=== PATIENT | male | born 1950 | race Caucasian/White ===

== ENCOUNTER 2016-10-18 09:15 | Inpatient (IN) | payer OTHER ==
[2016-09-30 12:09] LABS: % IMMATURE GRANULYOCYTES 0.2 % (0.0-1.1); ABSOLUTE IMMATURE GRANULOCYTES 0.01 10^3/uL (0.00-0.10); ADD DIFF? NO; ADD MORPH? NO; ADD SCAN? NO; ATYPICAL LYMPHOCYTE FLAG 10 (0-99); FRAGMENT RBC FLAG 0 (0-99); HEMATOCRIT 44.4 % (40.0-51.0); HEMOGLOBIN 15.9 g/dL (13.7-17.5); LEFT SHIFT FLG 0 (0-99); LIPEMIA HEMOLYSIS FLAG 90 (0-99); MEAN CELL HEMOGLOBIN 34.9 pg (27.9-34.1); MEAN CELL HEMOGLOBIN CONCENTR. 35.8 g/dL (32.4-36.7); MEAN CELL VOLUME 97.4 fL (81.5-99.8); PLATELET CLUMPS FLAG 0 (0-99); PLATELET COUNT 222 10^3/uL (150-400); RED BLOOD CELL COUNT 4.56 10^6/uL (4.40-6.38); RED CELL DISTRIBUTION WIDTH 12.8 % (11.5-15.2)
[2016-09-30 12:33] LABS: ANION GAP 15 mEq/L (8-16); CALCIUM 9.8 mg/dL (8.5-10.4); CARBON DIOXIDE 28 mEq/l (22-31); CHLORIDE 101 mEq/L (97-110); CREATININE 0.9 mg/dL (0.7-1.3); GLOMERULAR FILTRATION RATE > 60; GLUCOSE 96 mg/dL (70-100); POTASSIUM 4.4 mEq/L (3.5-5.2); SODIUM 144 mEq/L (134-144)
--- NOTE | 2016-10-17 17:26 | GHP ---
[f rep st] PREOP HISTORY AND PHYSICAL DATE OF ADMISSION: 10/18/2016 PROBLEM: Severe right knee degenerative arthritis. HISTORY OF PRESENT ILLNESS: The patient is a 66-year-old male, who will be undergoing a right total knee arthroplasty with Dr. Ramesh at the [facility], [facility]. The patient was first seen in 2015 for his increasing right knee pain. He had ACL reconstruction on the right knee 15 or 2 0 years ago. This was a revision surgery from a previous ACL reconstruction in 1985. Until April this past year, he had been doing reasonably well, when he tripped and fell over a grandchild and t wisted the knee. Ever since then, his knee has been stiff, swollen, and recalcitrant to conservative therapies. He continues to have debilitating pain and limitations of activities and has had to decr ease his activities because of the pain. He will occasionally use ibuprofen. Because of his recalci trant response to conservative therapies, he has elected to proceed with a right knee arthroplasty. PAST MEDICAL HISTORY: Pertinent for hypertension, hypercholesterolemia, and anxiety disorder. No hi story of coronary artery disease, DVT, or PE. He does have pre-diabetes syndrome. CURRENT MEDICATIONS: Atenolol 100 mg, clonazepam 1 mg, furosemide 40 mg, Klor-Con 20 mEq, lisinopril 20 mg, simvastatin 5 mg, venlafaxine ER 150 mg, and Narcan HCL 4 mg per spray. MEDICATION ALLERGIES: No known drug allergies. SOCIAL HISTORY: The patient is . He is retired. He is a former smoker at 1 pack per week. No recent smoking for 30+ years. Occasional alcohol intake. FAMILY HISTORY: Pertinent for stroke and congestive heart failure. PHYSICAL EXAMINATION: GENERAL: He is an otherwise healthy-appearing 66-year-old male. VITALS: Hei ght is 5 feet 9 inches, weight is 200 pounds. HEENT: Head is normocephalic, atraumatic. Eyes are P ERRLA. Conjunctivae and sclerae are clear. Mouth: He has good oral hygiene without any loose teeth . LUNGS: Clear. HEART: Regular rate and rhythm. He has a grade 2/6 systolic murmur heard best at the right upper sternal border. No gallops or rubs. EXTREMITIES: Pertinent findings are limited to the patient's right knee. He has an about 10 degree flexion contracture and has 100 degrees of flex ion. The knee is stable to exam. He has a long medial parapatellar incision and a short lateral sup racondylar incision, consistent with his previous surgical history. There is a moderate knee joint e ffusion with crepitus of the knee with active knee extension. DIAGNOSTIC IMAGING: X-rays taken of the patient's right knee shows severe tricompartmental degenerat angel arthritis. He has a retained screw in the tibia and femur from his previous ACL reconstruction. He has ossification of the medial collateral ligament at its origin on the femur. IMPRESSION ON ADMISSION: Severe right knee posttraumatic degenerative arthritis. PLAN: Will be for the patient to undergo a right total knee arthroplasty with Dr. Ramesh at the [facility] on Tuesday, October 18, 2016. The surgery has been described to the patient, including the risks, benefits, and expectations. He understands the risks of infection, nerve or blo od vessel injury, persistent knee pain or stiffness, and need for future revision surgery. All his q uestions have been answered, and he consents to surgery here in the office today. /[id number]/MODL
[~2016-10-18 09:15] MED LIST: ACETAMINOPHEN 325 MG TAB PO ONE; CEFAZOLIN 2 GM/DEXTR 100 ML IV ONE; CHLORHEXIDINE GLUC HIBICLENS 118 ML BTL TP ONE; DEXAMETHASONE 4 MG/ML VIAL IVP ONE; FAMOTIDINE 20 MG TAB PO ONE; POVIDONE-IODINE 20 ML in SODIUM CL IRRIG SOLUTION 500 ML IRR ONE; ROPI/epiNEPH/KETOROLAC JOINT COCKTAIL IU ONE; TRANEXAMIC ACID 900 MG in NS 100 ML IV ONE
[2016-10-18] MEDS ORDERED: ceFAZolin 1 GM/5 ML SYR ONE (10:03)
[2016-10-18] MEDS ORDERED: FAMOTIDINE 20 MG TAB ONE (10:47)
[2016-10-18] MEDS ORDERED: DEXAMETHASONE 4 MG/ML VIAL ONE ×2 (10:47→12:39)
[2016-10-18] MEDS ORDERED: ACETAMINOPHEN 325 MG TAB ONE (10:47)
[2016-10-18] MEDS ORDERED: CEFAZOLIN 2 GM/DEXTROSE/100 ML BAG IV ONE (10:48)
[2016-10-18] MEDS ORDERED: MIDAZOLAM 2 MG/2 ML VIAL ONE (11:33)
[2016-10-18] MEDS ORDERED: PROPOFOL/EMULSION 500 MG/50 ML BOTTLE IV ONE (11:46)
[2016-10-18] MEDS ORDERED: fentaNYL 100 MCG/2 ML INJ ONE (11:46)
[2016-10-18] MEDS ORDERED: LIDOCAINE 2% JELLY 5 ML TUBE ONE (12:38)
[2016-10-18] MEDS ORDERED: ONDANSETRON 4 MG/2 ML VIAL ONE (12:39)
[2016-10-18] MEDS ORDERED: PROPOFOL 200 MG/20 ML VIAL ONE (13:19)
[2016-10-18] MEDS ORDERED: BUPIVACAINE/EPI 0.5% 30 ML SDV ONE (13:20)
[2016-10-18] MEDS ORDERED: BUPIVACAINE 0.5% 30 ML SDV ONE (13:20)
--- NOTE | 2016-10-18 13:32 | POSTOPPROG ---
Post Op Note Date of Operation: 10/18/16 Surgeon: Stephan Ramesh Jacquard Card Cutter: Varun/Geneva Anesthesiologist: Bryce Anesthesia: IV Sedation, Spinal Post-op Diagnosis: right knee arthritis Procedure: R TKA Inf/Abcess present in the surg proc area at time of surgery?: No EBL: 50-100
[2016-10-18] MEDS ORDERED: CYCLOBENZAPRINE 10 MG TAB PO PRN (13:49)
[2016-10-18] MEDS ORDERED: KETOROLAC 30 MG/1 ML SDV IVP PRN (13:49)
[2016-10-18] MEDS ORDERED: PROMETHAZINE HCL 25 MG SUPPR PR PRN (13:49)
[2016-10-18] MEDS ORDERED: ONDANSETRON 4 MG/2 ML VIAL IVP PRN (13:49)
[2016-10-18] MEDS ORDERED: PHARMACY PAIN CONSULT 1 EA MISC PRN (13:49)
[2016-10-18] MEDS ORDERED: BISACODYL 10 MG SUPP PR PRN (13:49)
[2016-10-18] MEDS ORDERED: NS 500 ML IV PRN (13:49)
[2016-10-18] MEDS ORDERED: diphenhydrAMINE 25 MG CAP PO PRN (13:49)
[2016-10-18] MEDS ORDERED: TEMAZEPAM 15 MG CAP PO PRN (13:49)
[2016-10-18] MEDS ORDERED: PROMETHAZINE HCL 25 MG/ML INJ IVP PRN (13:49)
[2016-10-18] MEDS ORDERED: POLYETHYLENE GLYCOL 3350 17 GM PKT PO PRN (13:49)
[2016-10-18] MEDS ORDERED: traMADol 50 MG TAB PO PRN (13:49)
[2016-10-18] MEDS ORDERED: LACTULOSE 20 GM/30 ML UDCUP PO PRN (13:49)
[2016-10-18] MEDS ORDERED: MAGNESIUM HYDROXIDE 30 ML UDCUP PO PRN (13:49)
[2016-10-18] MEDS ORDERED: ONDANSETRON DISINTEGRATING 4 MG TAB PO PRN (13:49)
--- NOTE | 2016-10-18 14:39 | DX ---
Knee 1 or 2 Views Right History: Postop evaluation. Comparison exam: None available. Findings: Surgical features of a right total knee arthroplasty are present. The components of the pro sthesis appear well seated. There is deformity of the lower pole of the patella compatible with prior trauma. Also, heterotopic bone formation along the medial margin of the medial femoral condyle is co mpatible with prior trauma. Impression: Right knee arthroplasty without complication.
[2016-10-18] MEDS: TRANEXAMIC ACID 650 MG TAB PO SCH ×2 (16:45→21:53)
[2016-10-18] MEDS: ACETAMINOPHEN 325 MG TAB PO SCH (17:47)
--- NOTE | 2016-10-18 19:34 | GOP ---
[f rep st] OPERATIVE REPORT DATE OF OPERATION: 10/18/2016 SURGEON: Stephan Ramesh MD CATTLE KNOCKER: Giacomo Bond and Hung Bean. ANESTHESIA: A combination of Marcaine spinal and IV sedation, followed by an adductor canal block in the PACU. ANESTHESIOLOGIST: Dr. Herb Wu. PREOPERATIVE DIAGNOSIS: Right knee degenerative arthritis. POSTOPERATIVE DIAGNOSIS: Right knee degenerative arthritis. PROCEDURE PERFORMED: Right total knee arthroplasty, Hines and Nephew Journey II, posterior stabilize d, cemented. FINDINGS: ESTIMATED BLOOD LOSS: Following deflation of the tourniquet was about 100 cc. The sponge and needle count were correct on 2 occasions. He was awakened from anesthesia, transferred to his hospital [facility], and taken to PACU in satisfactor y condition. There were no recognized intraoperative complications. In the recovery room, for addit ional postoperative pain relief, Dr. Herb Wu performed an adductor canal block. Giacomo Bond and Hung Bean acted as surgical assistants. Their assistance was a medical necess ity. DESCRIPTION OF PROCEDURE: The patient was given 2 g of IV Ancef preoperatively within 60 minutes of surgery. He also received IV tranexamic acid at a dose of 20 mg/kg. He was placed on the operating room table and given spinal anesthesia with Marcaine by Dr. Wu. He was then placed supine and giv en IV sedation. A Camacho catheter was not used. A EDILBERTO stocking and sequential compression device wer e placed on the nonoperative leg. A bolster was placed under his right hip to prevent excessive exte rnal rotation of the leg. His right lower extremity was prepped with ChloraPrep from the upper thigh tourniquet to the tips of the toes. It was draped free using sterile sheets, stockinette, and Ioban plastic adhesive drape. The lower leg was wrapped with compressive Coban. The leg was exsanguinate d with elevation and a 6-inch compressive wrap, and the pneumatic tourniquet was inflated to 250 mmHg . The World [employer] Organization time-out was performed to verify the correct patient identity and the c orrect surgical side. The [place] time-out was also performed. The Qazzowayo leg holding device was sterilely attached to the operating room table and used throughout the procedure to help position the knee. A straight midline incision was made centered on the patell a. Subcutaneous tissues were sharply divided, and hemostasis was obtained using electrocautery. A m edial subcutaneous flap was developed, and the capsule and synovium were opened in the medial parapat ellar fashion. Extensive degenerative changes were present in all 3 compartments. The medial capsul e and periosteum were elevated off the rim in the medial tibial plateau all the way around to the pos teromedial corner. His medial collateral ligament was released just enough to balance the medial micky e of the knee. In order to improve exposure, his patella was prepared first. The original thickness of the patella was measured. Peripheral osteophytes were removed. I cut a flat surface on the back of the patella. It was sized for a 38 mm resurfacing component. I removed enough bone from the patella such that t he remaining bone plus the thickness of the patellar component recreated the original thickness of th e patella. The composite thickness was 25 mm. The intramedullary alignment guide system was used to set up the distal femoral cut. The distal femu r was cut in 5 degrees of valgus. Because of a mild preoperative flexion contracture, I made a +2 mm cut on the distal femur. The sizing jig was used to determine proper femoral sizing. I shifted the jig anteriorly 2 mm in order to accommodate a size 6 femoral component without notching the anterior cortex. Size 6 was the maximum size in the medial and lateral dimension. The 5 in 1 cutting block was applied, and the anterior and posterior condylar cuts and chamfer cuts were made. The final jig was used to remove the central portion of the distal femur to accommodate the posterior stabilized fe moral component. I was careful to determine proper rotation by referencing off Whitesides line. Eac h cut was checked for accuracy before and after it was made. His femur was sized for a size 6 chief technician ior stabilized component. The trial component was tapped securely into place and was an excellent fi t. Next, the tibia was prepared. The proximal tibial cut was made using the extramedullary alignment gu cale system. The cut was made in a few degrees of posterior slope. I was careful to achieve proper v arus valgus alignment and proper rotation. The posterior compartment was cleared of meniscal remnant s. I removed a loose body from the posterior compartment. Osteophytes were removed from the back of the femoral condyles. I checked the flexion and extension gaps, and they were equal and balanced. The tibia was sized for a size 5 component. With the trial components in place, I selected a 9 mm po lyethylene posterior stabilized tibial insert. The knee came to full extension, flexed to 125 degree s. There was no overstuffing in flexion. His collateral ligaments were stable and balanced in 90 de grees of flexion and full extension. The trial patellar button was applied, and patellar tracking wa s checked. Tracking was excellent without any digital pressure. 40 mL of the joint anesthetic cocktail were injected into the posterior capsule, the periarticular st ructures, the quadriceps muscle and tendon areas, and the subcutaneous tissues along the skin edges. A 2nd dose of IV tranexamic acid was given at a dose of 10 mg/kg. The surfaces were prepared for cementing. They were carefully cleaned with the pulsating lavage irri gation and thoroughly dried. The CarboJet device was used to blow dry the cancellous surfaces. A do uble batch of methylmethacrylate cement with tobramycin was mixed. While it was still in a semiliqui d state, all [address] components were cemented in place. Excess cement was removed before it hardened. The 9 mm trial tibial insert was re-tried and was the proper thickness. The actual component was ins erted and locked into place. The knee was thoroughly irrigated 1 final time with a dilute Betadine s olution. The tourniquet was deflated and the total tourniquet time was 60 minutes. The vastus medialis portion of the extensor mechanism was repaired with several interrupted figure-of -eight #2 FiberWire sutures. The capsule and synovium were closed first with multiple interrupted fi [id number] 0 PDS sutures, followed by a running #2 barbed Ethicon PDO suture. Subcutan eous tissues were closed with a running 0 barbed Ethicon Stratafix Monoderm suture. The skin was ale sed with a running 3-0 barbed Ethicon Monoderm subcuticular suture. The skin was sealed w ith half-inch Steri-Strips. The wound was covered with Xeroform gauze and flat 4 x 4's, and everythi ng was held in place with a Kerlix and 6-inch compressive wrap. A long leg EDILBERTO stocking and SCD were applied, followed by the cooling device. The patient wore a stocking and SCD on the opposite leg du ring the procedure. I used a size 6 cemented Hines and Nephew Oxinium posterior stabilized femoral component, a size 5 ce mented tibial base plate, a 9 mm posterior stabilized tibial insert, and a 38 mm cemented round all-p olyethylene resurfacing patellar component. /[id number]/MODL
[2016-10-18] MEDS: LR 1,000 ML IV SCH (19:53)
[2016-10-18] MEDS ORDERED: ceFAZolin 2 GM/DEXTROSE 100 ML IV SCH (20:00)
[2016-10-18] MEDS ORDERED: ATORVASTATIN CALCIUM 20 MG TAB PO SCH (21:00)
[2016-10-18] MEDS ORDERED: VENLAFAXINE XR 75 MG CAP PO SCH (21:00)
[2016-10-18] MEDS ORDERED: ATENOLOL 100 MG TAB PO SCH (21:00)
[2016-10-18] MEDS: ASPIRIN 325 MG TAB PO SCH (21:48)
[2016-10-18] MEDS: FAMOTIDINE 20 MG TAB PO SCH (21:49)
[2016-10-18] MEDS: LISINOPRIL 20 MG TAB PO SCH (21:50)
[2016-10-18] MEDS: FUROSEMIDE 40 MG TAB PO SCH (21:50)
[2016-10-18] MEDS: POTASSIUM CL 20 MEQ TAB PO SCH (21:51)
[2016-10-18] MEDS: SENNOSIDES/DOCUSATE SODIUM TAB PO SCH (21:52)
[2016-10-19] MEDS: ACETAMINOPHEN 325 MG TAB PO SCH ×3 (00:03→13:06)
[2016-10-19] MEDS ORDERED: ceFAZolin 2 GM in D5W 100 ML IV SCH (04:00)
[2016-10-19] MEDS ORDERED: ceFAZolin 1 GM VIAL ONE (04:00)
[2016-10-19] MEDS: LR 1,000 ML IV SCH (04:17)
[2016-10-19 05:11] LABS: HEMATOCRIT 35.4 % (40.0-51.0); HEMOGLOBIN 12.2 g/dL (13.7-17.5)
[2016-10-19 07:48] VITALS: BP 113/62; PULSE 69; RESP 14; TEMP 98.1; O2SAT 97
[2016-10-19] MEDS: LISINOPRIL 20 MG TAB PO SCH (08:05)
[2016-10-19] MEDS: ASPIRIN 325 MG TAB PO SCH (08:05)
[2016-10-19] MEDS: TRANEXAMIC ACID 650 MG TAB PO SCH (08:06)
[2016-10-19] MEDS: POTASSIUM CL 20 MEQ TAB PO SCH (08:07)
[2016-10-19] MEDS: SENNOSIDES/DOCUSATE SODIUM TAB PO SCH (08:07)
[2016-10-19] MEDS: FUROSEMIDE 40 MG TAB PO SCH (08:07)
[2016-10-19] MEDS: oxyCODONE IR 5 MG TAB PO PRN ×2 (08:17→13:07)
[2016-10-19] MEDS ORDERED: FERROUS SULFATE 140 MG TAB.ER PO SCH (09:00)
[2016-10-19] MEDS ORDERED: Herbals/Supplements -Info Only PO SCH (09:00)
[2016-10-19] MEDS ORDERED: NON-FORMULARY NEW DRUG (Simvastatin [Zocor] 40 MG) PO SCH (09:00)
[2016-10-19] MEDS ORDERED: clonazePAM 1 MG TAB PO SCH (09:00)
[2016-10-19] MEDS ORDERED: ATORVASTATIN CALCIUM 20 MG TAB PO SCH (09:00)
[2016-10-19] MEDS ORDERED: Simvastatin [Zocor] 40 MG PO SCH (09:00)
--- NOTE | 2016-10-19 09:30 | PDIAF ---
- Diagnosis Diagnosis: right knee arthritis Code Status: Full Code - Medication Management Discharge Medications: Medications to Continue on Transfer Atenolol [Tenormin 100 mg (*)] 100 mg PO HS 09/22/16 [Last Taken 10/17/16 20:00] Furosemide [Lasix 40 MG (*)] 40 mg PO BID 09/22/16 [Last Taken 10/17/16 08:00] Herbals/Supplements -Info Only 1 ea PO DAILY 09/22/16 [Last Taken 10/04/16] Lisinopril [Zestril 20 mg (*)] 20 mg PO BID 09/22/16 [Last Taken 10/18/16 08:00] Potassium Cl [Klor-Con 20 meq (*)] 20 meq PO BID 09/22/16 [Last Taken 10/17/16 20:00] Simvastatin [Zocor] 40 mg PO DAILY 09/22/16 [Last Taken 10/17/16 20:00] Venlafaxine Xr [Effexor Xr 75MG (*)] 150 mg PO BID 09/22/16 [Last Taken 08:00] clonazePAM [klonoPIN (*)] 1 mg PO DAILY 09/22/16 [Last Taken 10/18/16 08:00] Acetaminophen [Tylenol 325mg (*)] 650 mg PO Q6HRS #0 tab 10/19/16 [Last Taken Unknown] Aspirin [Aspirin 325 mg (*)] 325 mg PO DAILY #21 tab 10/19/16 [Last Taken Unknown] Ferrous Sulfate [Slow Fe 140 MG (*)] 140 mg PO DAILY #30 tab.er 10/19/16 [Last Taken Unknown] Ondansetron Odt [Zofran Odt 4 mg (*)] 4 mg PO Q4HRS PRN #0 tab 10/19/16 [Last Taken Unknown] oxyCODONE IR [Oxycodone Ir (*)] 5 - 10 mg PO Q3HRS PRN #0 tab 10/19/16 [Last Taken Unknown] traMADol [Ultram 50 mg (*)] 50 mg PO Q6HRS PRN #0 tab 10/19/16 [Last Taken Unknown] Discharge Medications: Refer to the Discharge Home Medication list for PRN reason. PICC Care - Routine: N/A - Orders Services needed: Home Care, Physical Therapy Home Care Face to Face: I certify that this patient was under my care and that I had the required [id number] encounter meeting the encounter requirements on the discharge day. My findings support the fact that the patient is homebound as defined in CMS Chapter 7 Medicare Benefits Manual 30.1.1, The condition of the patient is such that there exists a normal inability to leave home and consequently, leaving home would require a considerable and taxing effort. Diet Recommendation: no restrictions on diet Diet Texture: Regular Texture Diet Camacho: Not applicable Lm Stockings Discontinue Date: 1 week Wound Care Instructions: keep clean and dry. You may shower. Activity/Weight Bearing Restrictions: as tolerated. - Follow Up Care Current Providers and Referrals: Ata Napoles MD [Primary Care Provider] - Stephan Ramesh MD [Medical Doctor] - follow up in 10 days
--- NOTE | 2016-10-19 09:33 | SOAPPROG ---
SOAP Progress Note Assessment/Plan: Assessment: Afebrle. Mild pain. Walking in fernandez. Dsg is dry. H/H is good. Films look good. Plan: Up with PT Home today. 10/19/16 09:32 Objective: Vital Signs Temp Pulse Resp BP Pulse Ox 36.7 C 69 14 113/62 97 10/19/16 07:47 10/19/16 07:47 10/19/16 07:47 10/19/16 07:47 10/19/16 07:47 Laboratory Results 10/19/16 04:27 09/30/16 11:20 10/18/16 10/19/16 10/20/16 05:59 05:59 05:59 Intake Total 3800 Output Total 1400 Balance 2400 ICD10 Worksheet Patient Problems: Problems Problem Status Diagnosed Osteoarthritis of right knee Acute
[2016-10-19] MEDS: FAMOTIDINE 20 MG TAB PO SCH (10:20)
--- NOTE | 2016-10-19 11:52 | GDS ---
[f rep st] DISCHARGE SUMMARY ADMISSION DIAGNOSIS: Right knee severe degenerative arthritis. DISCHARGE DIAGNOSIS: Right knee severe degenerative arthritis. PROCEDURE PERFORMED: 10/18/2016, right total knee arthroplasty. POSTOPERATIVE COMPLICATIONS: None. CONDITION ON DISCHARGE: Improved. DESCRIPTION OF HOSPITAL COURSE: The patient was admitted to the hospital on the morning of surgery. His admission CBC, electrolytes, BUN, creatinine were all normal. The same day, under combination o f Marcaine spinal, IV sedation, and adductor canal block, he underwent a right total knee arthroplast y. Postoperatively there were no urination problems. He was treated with multimodal DVT prophylaxis including aspirin. On the 1st postoperative day, his hemoglobin and hematocrit were 12.2 and 35.4. He did not require any transfused blood other than autotransfusion. He was seen by Physical Therapy and made excellent progress with ambulation, stairs and knee range of motion. By the time of discha rge, he was afebrile, his wound was clean and dry, and he was independent walking. DISPOSITION: Patient discharged to his home. I will see him back in the office on November 03, 2016. He will have outpatient physical therapy. He may progress to full weightbearing on the right as to lerated. Use EDILBERTO stockings for 1 week. He has prescriptions for oxycodone and tramadol for pain con trol. If any problems, he is to call me at the office. /[id number]/MODL
--- NOTE | 2016-10-19 17:21 | DX ---
Lower extremity bone length examination. October 19, 2016. History: Status post right total knee arthroplasty. Findings: Surgical features of a right total knee arthroplasty are identified without hardware compli cation. Alignment through the right knee appears anatomic. Advanced left knee osteoarthritis and chondrocalcinosis present. Hip and ankle joint spaces appear relatively preserved. Impression: 1. Status post right knee arthroplasty. 2. Advanced degenerative changes left knee.
== END 2016-10-19 13:15 | disposition home health service (06) | DRG 470 ==
LOC: F3N 10:02
PROVIDERS: ADMIT Orthopaedic Surgery; ATTEND Orthopaedic Surgery
PROC: 0SRC0J9 Replacement of Right Knee Joint with Synthetic Substitute, Cemented, Open Approach (ICD-10-PCS; principal; 2016-10-18 11:30)
DX: M17.11 Unilateral primary osteoarthritis, right knee (principal); I10 Essential (primary) hypertension; E78.00 Pure hypercholesterolemia, unspecified; F41.9 Anxiety disorder, unspecified; R73.03 Prediabetes; Z87.891 Personal history of nicotine dependence
CPT/HCPCS: 97110-GP; 97161-GP; 97165-GO; C1713; J0171; J0690; J1100; J1885; J2250; J2405; J2704; J2795; J3010

== ENCOUNTER 2017-03-29 12:24 | Emergency (ER) | payer OTHER ==
[2017-03-29] MEDS ORDERED: OXYCODONE/APAP 5/325 TAB PO ONE (13:26)
[2017-03-29] MEDS ORDERED: IOPAMIDOL (ISOVUE-300) 100 ML BTL ONE (14:46)
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
[2017-03-29 17:18] VITALS: BP 145/76; PULSE 57; RESP 16; TEMP 97.9; O2SAT 96
== END 2017-03-29 17:18 | disposition home or self-care (01) ==
DX: S30.1XXA Contusion of abdominal wall, initial encounter (principal); S20.211A Contusion of right front wall of thorax, initial encounter; I10 Essential (primary) hypertension; Z87.891 Personal history of nicotine dependence; Z79.82 Long term (current) use of aspirin; V18.0XXA Pedal cycle driver injured in noncollision transport accident in nontraffic accident, initial encounter; Y92.410 Unspecified street and highway as the place of occurrence of the external cause; Y99.8 Other external cause status; Y93.55 Activity, bike riding
CPT/HCPCS: 82947-QW; Q9967

== ENCOUNTER 2017-03-31 11:22 | Emergency (ER) | payer OTHER ==
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
[2017-03-31] MEDS ORDERED: NS 1,000 ML IV ONE (13:35)
[2017-03-31] MEDS ORDERED: HYDROmorphONE/DILAUDID 1 MG/ML SYR IVP ONE (13:35)
[2017-03-31] MEDS ORDERED: ONDANSETRON 4 MG/2 ML VIAL IVP ONE (13:35)
[2017-03-31 14:29] LABS: % IMMATURE GRANULYOCYTES 0.4 % (0.0-1.1); ABSOLUTE IMMATURE GRANULOCYTES 0.04 10^3/uL (0.00-0.10); ADD DIFF? NO; ADD MORPH? NO; ADD SCAN? NO; ATYPICAL LYMPHOCYTE FLAG 0 (0-99); FRAGMENT RBC FLAG 0 (0-99); HEMATOCRIT 44.9 % (40.0-51.0); HEMOGLOBIN 15.4 g/dL (13.7-17.5); LEFT SHIFT FLG 0 (0-99); LIPEMIA HEMOLYSIS FLAG 90 (0-99); MEAN CELL HEMOGLOBIN 33.8 pg (27.9-34.1); MEAN CELL HEMOGLOBIN CONCENTR. 34.3 g/dL (32.4-36.7); MEAN CELL VOLUME 98.7 fL (81.5-99.8); MEAN PLATELET VOLUME 8.8 fL (8.7-11.7); PLATELET CLUMPS FLAG 20 (0-99); PLATELET COUNT 223 10^3/uL (150-400); RED BLOOD CELL COUNT 4.55 10^6/uL (4.40-6.38); RED CELL DISTRIBUTION WIDTH 12.7 % (11.5-15.2)
[2017-03-31 14:43] LABS: ANION GAP 15 mEq/L (8-16); CALCIUM 10.1 mg/dL (8.5-10.4); CARBON DIOXIDE 24 mEq/l (22-31); CHLORIDE 103 mEq/L (97-110); CREATININE 0.8 mg/dL (0.7-1.3); GLOMERULAR FILTRATION RATE > 60; GLUCOSE 95 mg/dL (70-100); POTASSIUM 4.9 mEq/L (3.5-5.2); SODIUM 142 mEq/L (134-144)
[2017-03-31] MEDS ORDERED: IOPAMIDOL (ISOVUE-300) 100 ML BTL ONE (15:09)
[2017-03-31 16:12] VITALS: BP 124/78; PULSE 60; RESP 16; TEMP 98.6; O2SAT 91
== END 2017-03-31 16:12 | disposition home or self-care (01) ==
DX: S22.41XA Multiple fractures of ribs, right side, initial encounter for closed fracture (principal); Z79.82 Long term (current) use of aspirin; Z87.891 Personal history of nicotine dependence; V18.0XXA Pedal cycle driver injured in noncollision transport accident in nontraffic accident, initial encounter; Y92.85 Railroad track as the place of occurrence of the external cause; Y99.8 Other external cause status; Y93.55 Activity, bike riding
CPT/HCPCS: 71010; 74177; 96374; 96375; 99285; J1170; J2405; Q9967

== ENCOUNTER 2017-11-21 09:17 | Observation (INO) | payer OTHER ==
[~2017-11-21 09:17] MED LIST changes: -ACETAMINOPHEN 325 MG TAB PO ONE; -CEFAZOLIN 2 GM/DEXTR 100 ML IV ONE; -CHLORHEXIDINE GLUC HIBICLENS 118 ML BTL TP ONE; -DEXAMETHASONE 4 MG/ML VIAL IVP ONE; -FAMOTIDINE 20 MG TAB PO ONE; -ROPI/epiNEPH/KETOROLAC JOINT COCKTAIL IU ONE; +ROPIVACAINE 0.2% 80 MG, EPINEPHrine 0.2 MG, KETOROLAC TROMETHAMINE 30 MG in SYRINGE 0 ML IU ONE; +TRANEXAMIC ACID 1,000 MG in NS (SYRINGE) 50 ML IV ONE; -TRANEXAMIC ACID 900 MG in NS 100 ML IV ONE
[2017-11-21] MEDS ORDERED: VANCOMYCIN 1 GM VIAL ONE (09:23)
[2017-11-21] MEDS ORDERED: ceFAZolin 1 GM/5 ML SYR ONE (09:24)
[2017-11-21] MEDS ORDERED: FAMOTIDINE 20 MG TAB PO ONE (09:31)
[2017-11-21] MEDS ORDERED: GABAPENTIN 300 MG CAP PO ONE (09:31)
[2017-11-21] MEDS ORDERED: ONDANSETRON 4 MG/2 ML VIAL IVP ONE (09:31)
[2017-11-21] MEDS ORDERED: DEXAMETHASONE 4 MG/ML VIAL IVP ONE (09:31)
[2017-11-21] MEDS ORDERED: ceFAZolin 2 GM/SWFI 2 GM/20 ML SYR IVP ONE (09:31)
[2017-11-21] MEDS ORDERED: ACETAMINOPHEN 325 MG TAB PO ONE (09:31)
[2017-11-21] MEDS ORDERED: LR 1,000 ML IV ONE (09:32)
[2017-11-21] MEDS ORDERED: MIDAZOLAM 2 MG/2 ML VIAL IVP ONE (09:52)
--- NOTE | 2017-11-21 09:54 | PDANEPAE ---
ANE History of Present Illness 67 yo male with OA for L TKA. ANE Past Medical History - Cardiovascular History Hx Hypertension: Yes Hx Arrhythmias: No Hx Chest Pain: No Hx Coronary Artery / Peripheral Vascular Disease: No Hx CHF / Valvular Disease: No Hx Palpitations: No Cardiovascular History Comment: on Zocor for chol. - Pulmonary History Hx COPD: No Hx Asthma/Reactive Airway Disease: No Hx Recent Upper Respiratory Infection: No Hx Oxygen in Use at Home: No Hx Sleep Apnea: No Sleep Apnea Screening Result - Last Documented: Positive Pulmonary History Comment: ricco triggers - Neurologic History Hx Cerebrovascular Accident: No Hx Seizures: No Hx Dementia: No - Endocrine History Hx Diabetes: No Hypothyroid: No Hyperthyroid: No - Renal History Hx Renal Disorders: No - Liver History Hx Hepatic Disorders: No - Neurological & Psychiatric Hx Hx Neurological and Psychiatric Disorders: Yes Neurological / Psychiatric History Comment: anxiety-on Rx - Cancer History Hx Cancer: No - Congenital Disorder History Hx Congenital Disorders: No - GI History Hx Gastrointestinal Disorders: No - Other Health History Other Health History: OA R knee pain - Chronic Pain History Chronic Pain: Yes (R knee) - Surgical History Prior Surgeries: 5 total surgeries on both knees-open and scopes. ANE Review of Systems Review of Systems: - Exercise capacity METS (RN): 4 METS - Systems Constitutional: Reports: no symptoms Cardiac: Reports: no symptoms Respiratory: Reports: no symptoms Gastrointestinal: Reports: no symptoms ANE Patient History - Allergies Allergies/Adverse Reactions: No Known Allergies Allergy (Verified 11/06/17 12:15) - Home Medications Home Medications: RX: Atenolol [Tenormin 100 mg (*)] 100 mg PO HS 09/22/16 [Last Taken 11/20/17] RX: Furosemide [Lasix 40 MG (*)] 40 mg PO BID 09/22/16 [Last Taken 11/21/17 07: 00] RX: Herbals/Supplements -Info Only 1 ea PO DAILY 09/22/16 [Last Taken 10/04/16] RX: Potassium Cl [Klor-Con 20 meq (*)] 20 meq PO BID 09/22/16 [Last Taken 07:00] RX: Simvastatin [Zocor] 40 mg PO DAILY 09/22/16 [Last Taken 11/21/17 07:00] RX: Venlafaxine Xr [Effexor Xr 75MG (*)] 375 mg PO BID 09/22/16 [Last Taken 07:00] RX: clonazePAM [klonoPIN (*)] 1 mg PO DAILY 09/22/16 [Last Taken 11/21/17 07:00] amLODIPine BESYLATE [Norvasc 5 mg (*)] 5 mg PO DAILY 10/31/17 [Last Taken 07:00] Cholecalciferol Vit D3 [Vitamin D3 (*)] 1,000 units PO DAILY 11/07/17 [Last Taken 1 Week Ago ~11/14/17] - NPO status NPO Since - Liquids (Date): 11/21/17 NPO Since - Liquids (Time): 07:00 NPO Since - Solids (Date): 11/20/17 NPO Since - Solids (Time): 21:30 - Anes Hx Anes Hx: no prior problems - Smoking Hx Smoking Status: Former smoker (quit x 36 yrs ago) Marijuana use: No - Alcohol Use Alcohol Use: Occasionally (8 drinks/week) - Family Anes Hx Family Hx Anesthesia Complications: none ANE Labs/Vital Signs - Vital Signs Blood Pressure: 123/71 Heart Rate: 54 Respiratory Rate: 14 O2 Sat (%): 93 Height: 175.26 cm Weight: 95.254 kg ANE Physical Exam - Airway Neck exam: FROM Mallampati Score: Class 2 Mouth exam: normal dental/mouth exam - Pulmonary Pulmonary: clear to auscultation - Cardiovascular Cardiovascular: bradycardia - ASA Status ASA Status: II ANE Anesthesia Plan Anesthesia Plan: spinal Regional Anesthesia: adductor canal FNB
--- NOTE | 2017-11-21 09:58 | PDHPUP ---
History & Physical Update H&P update statement: This history and physical update is based on an assessment of the patient which was completed after admission or registration (within 24 hours), but prior to the surgery/procedure. H&P update: H&P reviewed & patient examined, no change in patient's condition since H&P completed
[2017-11-21] MEDS ORDERED: DEXAMETHASONE 4 MG/ML VIAL ONE (10:42)
[2017-11-21] MEDS ORDERED: fentaNYL 100 MCG/2 ML INJ ONE (10:42)
[2017-11-21] MEDS ORDERED: LIDOCAINE 2% 5 ML SDV ONE (10:42)
[2017-11-21] MEDS ORDERED: PROPOFOL/EMULSION 500 MG/50 ML BOTTLE IV ONE ×2 (10:42→12:05)
[2017-11-21] MEDS ORDERED: BUPIVACAINE 0.5% 10 ML SDV ONE (10:44)
[2017-11-21] MEDS ORDERED: ROPIVACAINE HCL 150 MG/30 ML INJ ONE (12:02)
[2017-11-21] MEDS ORDERED: ONDANSETRON 4 MG/2 ML VIAL IVP PRN ×2 (12:42→12:54)
[2017-11-21] MEDS ORDERED: DIAZEPAM 5 MG/ML 1 ML SYR IVP PRN (12:42)
[2017-11-21] MEDS ORDERED: NALOXONE HCL 0.4 MG/ML INJ IVP PRN (12:42)
[2017-11-21] MEDS ORDERED: fentaNYL 100 MCG/2 ML INJ IVP PRN (12:42)
[2017-11-21] MEDS ORDERED: LR 500 ML IV PRN (12:42)
--- NOTE | 2017-11-21 12:50 | POSTOPPROG ---
Post Op Note Date of Operation: 11/21/17 Surgeon: Stephan Ramesh Hand Brim Ironer: Rocio Anesthesiologist: Lorraine Anesthesia: IV Sedation, Spinal Post-op Diagnosis: Left knee severe degenerative arthritis Procedure: Left total knee arthroplasty Inf/Abcess present in the surg proc area at time of surgery?: No EBL: 50-100 (Adductor canal block with indwelling catheter in PACU.)
[2017-11-21] MEDS ORDERED: TEMAZEPAM 15 MG CAP PO PRN (12:54)
[2017-11-21] MEDS ORDERED: ONDANSETRON DISINTEGRATING 4 MG TAB PO PRN (12:54)
[2017-11-21] MEDS ORDERED: BISACODYL 10 MG SUPP PR PRN (12:54)
[2017-11-21] MEDS ORDERED: traMADol 50 MG TAB PO PRN (12:54)
[2017-11-21] MEDS ORDERED: MAGNESIUM HYDROXIDE 30 ML UDCUP PO PRN (12:54)
[2017-11-21] MEDS ORDERED: diphenhydrAMINE 25 MG CAP PO PRN (12:54)
[2017-11-21] MEDS ORDERED: oxyCODONE IR 5 MG TAB PO PRN (12:54)
[2017-11-21] MEDS ORDERED: KETOROLAC 30 MG/1 ML SDV IVP PRN (12:54)
[2017-11-21] MEDS ORDERED: POLYETHYLENE GLYCOL 3350 17 GM PKT PO PRN (12:54)
[2017-11-21] MEDS ORDERED: NS 500 ML IV PRN (12:54)
[2017-11-21] MEDS ORDERED: CYCLOBENZAPRINE 10 MG TAB PO PRN (12:54)
[2017-11-21] MEDS ORDERED: DIPHENOXYLATE/ATROPINE LOMOTIL 1 TAB PO PRN (12:54)
[2017-11-21] MEDS ORDERED: PROMETHAZINE HCL 25 MG/ML INJ IVP PRN (12:54)
[2017-11-21] MEDS ORDERED: PROMETHAZINE HCL 25 MG SUPPR PR PRN (12:54)
[2017-11-21] MEDS ORDERED: LACTULOSE 20 GM/30 ML UDCUP PO PRN (12:54)
[2017-11-21] MEDS ORDERED: LR 1,000 ML IV SCH (13:00)
--- NOTE | 2017-11-21 13:09 | POSTANESTH ---
Post Anesthetic Evaluation Cardiovascular Status: Normal, Stable Respiratory Status: Normal, Stable Level of Consciousness/Mental Status: Can Participate in Eval, Mildly Sleepy, Arousable Pain Control: Adequate, Prn Tx Ordered Nausea/Vomiting Control: Adequate, Prn Tx Ordered Complications Possibly Related to Anesthesia: None Noted (Moving LEx2 - still insensate secondary to spinal block. L adductor canal PNB catheter placed in PACU. Pt tolerated procedure well.)
--- NOTE | 2017-11-21 13:53 | GOP ---
[f rep st] OPERATIVE REPORT DATE OF OPERATION: 11/21/2017 SURGEON: Stephan Ramesh MD LANDSCAPE FOREMAN: Giacomo Bond and Hung Bean. ANESTHESIA: A combination of spinal with IV sedation and an adductor canal block in the PACU. ANESTHESIOLOGIST: Merly Ochoa MD PREOPERATIVE DIAGNOSIS: Left knee severe degenerative arthritis, status post previous anterior cruci ate ligament reconstruction. POSTOPERATIVE DIAGNOSIS: Left knee severe degenerative arthritis, status post previous anterior cruc iate ligament reconstruction. PROCEDURE PERFORMED: Left total knee arthroplasty, cemented, Hines and Nephew Journey II, posterior stabilized. FINDINGS: DESCRIPTION OF PROCEDURE: The patient was given 2 grams of IV Ancef preoperatively within 60 minutes of surgery. He also received IV tranexamic acid at a dose of 10 mg/kg. He was placed on the operat ing room table and given spinal anesthesia with Marcaine by Dr. Ochoa. He was then placed supine a nd given IV sedation. A Camacho catheter was not used. He wore a EDILBERTO stocking and SCD on the nonopera tive leg. A bolster was placed under the left hip to prevent excessive external rotation of the leg. His left lower extremity was prepped with ChloraPrep from the upper thigh tourniquet to the tips of the toes. It was draped free using sterile sheets, stockinette, and Ioban plastic adhesive drapes. The lower leg was wrapped with compressive Coban. The leg was exsanguinated with elevation and a 6- inch compressive wrap, and the pneumatic tourniquet was inflated to 275 mmHg. The World Health Organization time-out was performed to verify the correct patient identity and the c orrect surgical side and site. The [place] time-out was also performed. The Milk A Dealayo leg holding device was sterilely attached to the operating room table and used throughout the procedure to help position the knee. A straight midline incision was made centered on the patell a. He had a very long medial incision from his previous ACL reconstruction over 30 years ago. I was careful to keep my incision adequately away from the existing incision. Subcutaneous tissues were s harply divided and hemostasis was obtained using electrocautery. A medial subcutaneous flap was deve loped and the capsule and synovium were opened in a medial parapatellar fashion. Extensive degenerat angel changes were present throughout the knee. Large osteophytes were present around the femoral cond yles. He had a large amount of hypertrophic, but somewhat burned out synovium. The medial capsule a nd periosteum were elevated off the rim and medial tibial plateau up around to the posteromedial corn er. His medial collateral ligament was released enough to balance the medial side of the knee. In order to improve exposure, his patella was prepared first. The original thickness of the patella was measured. Peripheral osteophytes removed. I cut a flat surface on the back of the patella. It was sized for a 38 mm round resurfacing component. I removed enough bone from the patella, such that the remaining bone, plus the thickness of the patellar component recreated the original thickness of the patella. The composite thickness was 26 mm. The intramedullary alignment guide system was used to set up the distal femoral cut. The distal femu r was cut in 5 degrees of valgus. Because of a 10 degree flexion contracture, I made a +2 mm cut on the distal femur. The sizing jig was used to determine proper femoral sizing. He was a true size 7. This was 1 size larger than I used on his opposite knee year ago; however, this was the correct fit . The 5-in-1 cutting block was applied, and the anterior and posterior condylar cuts and chamfer cut s were made. The final jig was used to remove the central portion of the distal femur to accommodate the posterior stabilized femoral component. I was careful to determine proper rotation by referjohanne bond off Whitesides line and other bony landmarks. Each cut was checked for accuracy before and after it was made. The femur was sized for a size 7 posterior stabilized component. Next, the tibia was prepared. The proximal tibial cut was made using the extramedullary alignment gu cale system. The cut was made in a few degrees of posterior slope. I was careful to achieve proper v arus-valgus alignment and proper rotation. The posterior compartment was cleared of meniscal remnant s. Osteophytes were removed from the back of the femoral condyles. I checked the flexion, extension gaps, and they were equal and balanced and rectangular. The tibia was sized for a size 6 component. With the trial components in place, I selected a 9 mm polyethylene posterior stabilized tibial inse rt. The knee came to full extension flexed to 120 degrees. There was no overstuffing in flexion. H is collateral ligaments were stable and balanced in 90 degrees of flexion and full extension. The tr ial patellar button was applied and tracking was checked. Tracking was excellent without any digital pressure. 40 cc of the joint anesthetic cocktail were injected into the posterior capsule, the periarticular st ructures, the quadriceps muscle and tendon areas, and the subcutaneous tissues along the skin edges. A second dose of IV tranexamic acid was given at a dose of 10 mg/kg. The surfaces were prepared for cementing. They were carefully cleaned with the pulsating lavage irri gation and thoroughly dried. The CarboJet device was used to blow-dry the cancellous surfaces. A do uble batch of high viscosity methylmethacrylate cement with 2 grams of powdered vancomycin added was mixed. While it was still in a doughy state, all [address] components were cemented in place. Excess cement was removed before it hardened. The 9 mm trial tibial insert was re-tried and was the proper thickness. The actual component was ins erted and locked into place. The knee was thoroughly irrigated 1 final time with a dilute Betadine s olution. The tourniquet was deflated and the total tourniquet time was 53 minutes. Vastus medialis portion of the extensor mechanism was repaired with several interrupted [id number] [id number] #2 FiberWire sutures. The capsule and synovium were closed first with multiple interrupted figure -of-eight 0 PDS sutures, followed by a running #2 barbed Ethicon Stratafix PDO suture. Subcutaneous tissues were closed with a running 0-barbed Ethicon Stratafix MonoDerm suture. The skin was closed w ith a running 3-0 barbed Stratafix MonoDerm subcuticular suture. The skin was sealed with half-inch Steri-Strips. The wound was covered with a large Mepilex waterproof dressing and a 6-inch compressiv e wrap. A long-leg EDILBERTO stocking and SCD were applied, followed by the cooling device. I used a size 7 cemented Hines and Nephew Oxinium posterior stabilized femoral component, a size 6 ce mented tibial base plate, a 9 mm posterior stabilized tibial insert, and a 38 mm cemented round all-p olyethylene resurfacing patellar component. The estimated blood loss following deflation of the tourniquet was about 100 cc. The sponge and needle count were correct on 2 occasions. The patient was awakened from anesthesia, transferred to his hospital [facility], and taken to PACU in sa tisfactory condition. There were no recognized intraoperative complications. In the PACU, for additional postoperative pain control, Dr. Ochoa performed an adductor canal block with an indwelling catheter for later dosing. Giacomo Bond and Hung Bean acted as surgical assistants. Their assistance was a medical necess ity. /[id number]/MODL
[2017-11-21 14:01] VITALS: RESP 16
[2017-11-21] MEDS: VENLAFAXINE XR 75 MG CAP PO SCH (16:55)
[2017-11-21] MEDS: ACETAMINOPHEN 325 MG TAB PO SCH ×2 (16:56→23:02)
[2017-11-21] MEDS: ceFAZolin 2 GM/SWFI 2 GM/20 ML SYR IVP SCH (18:08)
[2017-11-21] MEDS ORDERED: ATORVASTATIN CALCIUM 20 MG TAB PO SCH (21:00)
[2017-11-21] MEDS ORDERED: ATENOLOL 100 MG TAB PO SCH (21:00)
[2017-11-21] MEDS: TRANEXAMIC ACID 650 MG TAB PO SCH (21:51)
[2017-11-21] MEDS: SENNOSIDES/DOCUSATE SODIUM TAB PO SCH (21:51)
[2017-11-21] MEDS: FAMOTIDINE 20 MG TAB PO SCH (21:52)
[2017-11-21] MEDS: POTASSIUM CL 20 MEQ TAB PO SCH (21:53)
[2017-11-21] MEDS: FUROSEMIDE 40 MG TAB PO SCH (21:59)
[2017-11-21] MEDS: ASPIRIN 325 MG TAB PO SCH (22:49)
[2017-11-22] MEDS: ceFAZolin 2 GM/SWFI 2 GM/20 ML SYR IVP SCH (03:58)
[2017-11-22] MEDS: ACETAMINOPHEN 325 MG TAB PO SCH ×2 (05:19→13:10)
[2017-11-22] MEDS: TRANEXAMIC ACID 650 MG TAB PO SCH (05:20)
[2017-11-22] MEDS: FAMOTIDINE 20 MG TAB PO SCH (08:43)
[2017-11-22] MEDS: POTASSIUM CL 20 MEQ TAB PO SCH (08:44)
[2017-11-22] MEDS: ASPIRIN 325 MG TAB PO SCH (08:44)
[2017-11-22] MEDS: FUROSEMIDE 40 MG TAB PO SCH (08:44)
[2017-11-22] MEDS: SENNOSIDES/DOCUSATE SODIUM TAB PO SCH (08:45)
[2017-11-22] MEDS ORDERED: amLODIPine BESYLATE 5 MG TAB PO SCH (09:00)
[2017-11-22] MEDS ORDERED: NON-FORMULARY NEW DRUG (Simvastatin [Zocor] 40 MG) PO SCH (09:00)
[2017-11-22] MEDS ORDERED: FERROUS SULFATE 140 MG TAB.ER PO SCH (09:00)
[2017-11-22] MEDS ORDERED: clonazePAM 1 MG TAB PO SCH (09:00)
[2017-11-22] MEDS: VENLAFAXINE XR 75 MG CAP PO SCH (09:27)
--- NOTE | 2017-11-22 09:43 | SOAPPROG ---
SOAP Progress Note Assessment/Plan: Assessment: Afebrile. Min pain so far. Up and walking. H/H is good. Films look good. He had some calf swelling pre op from plane flight. No calf tenderness today. Will check US Plan: More PT today. DC later today. Check US 11/22/17 09:41 Objective: Vital Signs Temp Pulse Resp BP Pulse Ox 36.5 C 63 16 107/56 L 95 11/22/17 07:33 11/22/17 07:33 11/22/17 07:33 11/22/17 08:44 11/22/17 07:33 Laboratory Results 11/22/17 04:28 11/21/17 11/22/17 11/23/17 05:59 05:59 05:59 Intake Total 2700 500 Output Total 2230 350 Balance 470 150 ICD10 Worksheet Patient Problems: Problems Problem Status Onset Osteoarthritis of left knee Acute Osteoarthritis of right knee Acute
--- NOTE | 2017-11-22 10:08 | GDS ---
[f rep st] DISCHARGE SUMMARY PREOPERATIVE DIAGNOSIS: Left knee severe degenerative arthritis, status post anterior cruciate ligament reconstruction. DISCHARGE DIAGNOSIS: Left knee severe degenerative arthritis, status post anterior cruciate ligament reconstruction. OPERATION PERFORMED: 11/21/2017, a left total knee arthroplasty. POSTOPERATIVE COMPLICATIONS: None. CONDITION ON DISCHARGE: Improved. DESCRIPTION OF HOSPITAL COURSE: The patient was admitted to the hospital on the morning of surgery. His admission CBC, electrolytes, BUN, and creatinine were all normal. The same day, under a combination of Marcaine, spinal, IV sedation, and adductor canal block he underwent a left total knee arthroplasty. Postoperatively, he was treated with multimodal DVT prophylaxis, including aspirin. On the first postoperative day, his hemoglobin and hematocrit were 12.3 and 34.1. He was seen by Physical Therapy and made good progress with ambulation and stairs. On the first postoperative day, Anesthesia gave him another dose of Marcaine through his adductor canal catheter and then removed the catheter. The patient was experiencing some swelling in his left calf preoperatively, which occurred after a plane flight. We checked his leg ultrasound prior to discharge. The results were not available at the time of dictation. DISPOSITION: The patient is discharged to his home. He will go to outpatient physical therapy at our [facility] office. He may progress to full weightbearing on the left as tolerated. Continue aspirin 325 mg daily for 20 days. I will adjust his DVT prophylaxis pending the outcome of the leg ultrasound. He has prescriptions for oxycodone and tramadol for pain control. Use EDILBERTO stockings for 1 week. I will see him back in the office on 12/04/2017. If any problems, he is to call me at the office. Leg ultrasound negative. /[id number]/MODL MTDD
--- NOTE | 2017-11-22 10:27 | ASMTCMCOM ---
CM Note CM Note Notes: Pt s/p total knee. PT rec [facility]. Pt medically stable for d/c with family support and outpatient PT per MD recommendation. No CM d/c needs identified. Date Signed: 11/22/2017 10:27 AM Electronically Signed By:LEE Huang
[2017-11-22 11:53] VITALS: BP 127/58; PULSE 64; TEMP 97.8; O2SAT 93
--- NOTE | 2017-11-22 14:49 | SOAPPROG ---
SOAP Progress Note Assessment/Plan: Assessment: POD #1 after TKA with continous adductor canal catheter. Patient comfortable, no pain. Dr Ramesh requests bolus of LA before patient goes home. Catheter insertion site clean. Positive serous liquid aspirated from the catheter by me. Catheter pulled back 1 mm. Negative aspiration. I injected just half of the original intended dose. Multiple negative aspirations every 2 ml. Total of 10 ml marcaine 0.25% plain used. Catheter removed. Tip intact. Bandaid applied Plan: Patient comfortable. Discharge home 11/22/17 14:45 Objective: Vital Signs Temp Pulse Resp BP Pulse Ox 36.6 C 64 16 127/58 H 93 11/22/17 11:50 11/22/17 11:50 11/22/17 11:50 11/22/17 11:50 11/22/17 11:50 Laboratory Results 11/22/17 04:28 11/21/17 11/22/17 11/23/17 05:59 05:59 05:59 Intake Total 2700 500 Output Total 2230 350 Balance 470 150 ICD10 Worksheet Patient Problems: Problems Problem Status Onset Osteoarthritis of left knee Acute Osteoarthritis of right knee Acute
== END 2017-11-22 15:26 | disposition home or self-care (01) ==
LOC: F3N 09:17
PROVIDERS: ADMIT Orthopaedic Surgery; ATTEND Orthopaedic Surgery
PROC: 0SRD0JZ Replacement of Left Knee Joint with Synthetic Substitute, Open Approach (ICD-10-PCS; principal; 2017-11-21 10:45)
DX: M17.12 Unilateral primary osteoarthritis, left knee (principal); F41.9 Anxiety disorder, unspecified
CPT/HCPCS: 27447; 73560; 77073; 93971; 97110; 97116; 97161; 97165; G0378; C1713; J0171; J0690; J1100; J1885; J2250; J2405; J2704; J2795; J3010; J3370

== ENCOUNTER 2019-02-18 08:53 | Emergency (ER) | payer OTHER ==
[2019-02-18] MEDS ORDERED: NS 500 ML IV ONE (09:33)
[2019-02-18] MEDS ORDERED: ONDANSETRON 4 MG/2 ML VIAL IVP ONE (09:33)
--- NOTE | 2019-02-18 09:33 | EDPHY ---
H & P Time Seen by Provider: 02/18/19 09:30 HPI/ROS: CHIEF COMPLAINT: Abdominal bloating and discomfort HISTORY OF PRESENT ILLNESS: The patient is a 68-year-old male with a remote history of hernia repair who presents emergency department with abdominal bloating and diffuse discomfort. Patient states that approximately 10 hr ago he developed distension. This is causing him to have diffuse mild discomfort. He had vomiting x2. This was nonbloody. He denies diarrhea. No fevers or chills. No recent trauma. REVIEW OF SYSTEMS: 10 systems were reveiwed and are negative with the exception of the elements mentioned in the history of present illness. Past Medical/Surgical History: Includes hypertension, high cholesterol Past surgical history: Includes orthopedic surgery, hernia repair Social history: Patient does not smoke Smoking Status: Former smoker Physical Exam: Vitals noted. Afebrile. GENERAL: Well-appearing, in no acute distress, alert. HEENT: Eyes normal to inspection, normal pharynx, no signs of dehydration. NECK: Normal, supple. RESPIRATORY: Clear to auscultation bilaterally, no rales, rhonchi or wheezing. CVS: Regular rate and rhythm, no rubs, murmurs, or gallops. ABDOMEN: Soft, mild diffuse tenderness palpation with no rebound or guarding, distended, no organomegaly. BACK: Normal to inspection, no CVA tenderness. SKIN: Normal color, no rash, warm, dry. No pallor. EXTREMITIES: No pedal edema, no calf tenderness, no Homans sign or cords, no joint swelling. NEURO/PSYCH: Alert and oriented, normal mood and affect, normal motor sensory exam. Constitutional: Initial Vital Signs Temperature (C) 36.9 C 02/18/19 09:02 Heart Rate 57 L 02/18/19 09:02 Respiratory Rate 19 02/18/19 09:02 Blood Pressure 160/69 H 02/18/19 09:02 O2 Sat (%) 97 02/18/19 09:02 O2 Delivery Mode Room Air Allergies/Adverse Reactions: No Known Allergies Allergy (Verified 02/18/19 09:04) Home Medications: Medication Instructions Recorded Atenolol [Tenormin 100 mg (*)] 100 mg PO HS 09/22/16 Furosemide [Lasix 40 MG (*)] 40 mg PO BID 09/22/16 Herbals/Supplements -Info Only 1 ea PO DAILY 09/22/16 Potassium Cl [Klor-Con 20 meq (*)] 20 meq PO BID 09/22/16 Simvastatin [Zocor] 40 mg PO DAILY 09/22/16 Venlafaxine Xr [Effexor Xr 75MG 375 mg PO BID 09/22/16 (*)] clonazePAM [klonoPIN (*)] 1 mg PO DAILY 09/22/16 Aspirin [Aspirin 325 mg (*)] 325 mg PO DAILY #21 tab 10/19/16 amLODIPine BESYLATE [Norvasc 5 mg 5 mg PO DAILY 10/31/17 (*)] Cholecalciferol Vit D3 [Vitamin D3 1,000 units PO DAILY 11/07/17 (*)] Acetaminophen [Tylenol 325mg (*)] 650 mg PO Q6HRS tab 11/22/17 Ferrous Sulfate [Slow Fe 140 MG] 140 mg PO DAILY tab.er 11/22/17 Ondansetron Odt [Zofran Odt 4 mg 4 mg PO Q4HRS PRN tab 11/22/17 (*)] Sennosides/Docusate Sodium 1 - 2 tab PO BID tab 11/22/17 [Senokot-S] celeCOXIB [Celebrex (*)] 200 mg PO DAILY cap 11/22/17 oxyCODONE IR [Oxycodone Ir (*)] 5 - 10 mg PO Q3HRS PRN tab 11/22/17 traMADol [Ultram 50 mg (*)] 50 mg PO Q6HRS PRN tab 11/22/17 Medical Decision Making - Diagnostics Imaging Results: Imaging Impressions Abdomen CT 02/18/19 09:33 Impression: No evidence for acute intraabdominal pelvic abnormality. Chronic findings, as above, which are stable. Results called and discussed with Ely Aleman M.D., on February 18, 2019 at 1027. ED Course/Re-evaluation: In the emergency department I discussed possible etiologies with the patient. Answered all his questions. IV was placed. Laboratory studies and CT were ordered. CBC and chemistry unremarkable. CT of the abdomen pelvis: Please refer the dictated report by Dr. Valdez. No acute disease noted. 1145: I rechecked the patient. He was lying comfortably in the room. He still felt distended. On exam his abdomen felt mildly distended but no focal tenderness to palpation. No rebound or guarding. I discussed disposition options with the patient. I offered him admission for observation. Patient would prefer discharge. He will follow up with Dr. Napoles tomorrow. He was given warnings. He will return emergency department sooner if her symptoms worsen or he can tolerate oral intake. Patient was given a take-home pack of Zofran. Differential Diagnosis: My differential includes but is not limited to small-bowel obstruction, perforation, volvulus, intussusception, mass, malignancy, ascites - Data Points Laboratory Results: Laboratory Results 02/18/19 09:55 02/18/19 09:55 02/18/19 02/18/19 02/18/19 09:55 09:55 09:31 WBC 8.28 10^3/uL 10^3/uL (3.80-9.50) RBC 4.74 10^6/uL 10^6/uL (4.40-6.38) Hgb 16.2 g/dL g/dL (13.7-17.5) POC Hgb 16.7 gm/dL gm/dL (13.7-17.5) Hct 45.2 % % (40.0-51.0) POC Hct 49 % % (40-51) MCV 95.4 fL fL (81.5-99.8) MCH 34.2 pg H pg (27.9-34.1) MCHC 35.8 g/dL g/dL (32.4-36.7) RDW 12.7 % % (11.5-15.2) Plt Count 204 10^3/uL 10^3/uL (150-400) MPV 8.8 fL fL (8.7-11.7) Neut % (Auto) 77.4 % H % (39.3-74.2) Lymph % (Auto) 12.0 % L % (15.0-45.0) Sevier % (Auto) 8.6 % % (4.5-13.0) Eos % (Auto) 1.0 % % (0.6-7.6) Baso % (Auto) 0.6 % % (0.3-1.7) Nucleat RBC Rel Count 0.0 % % (0.0-0.2) Absolute Neuts (auto) 6.42 10^3/uL 10^3/uL (1.70-6.50) Absolute Lymphs (auto) 0.99 10^3/uL L 10^3/uL (1.00-3.00) Absolute Monos (auto) 0.71 10^3/uL 10^3/uL (0.30-0.80) Absolute Eos (auto) 0.08 10^3/uL 10^3/uL (0.03-0.40) Absolute Basos (auto) 0.05 10^3/uL 10^3/uL (0.02-0.10) Absolute Nucleated RBC 0.00 10^3/uL 10^3/uL (0-0.01) Immature Gran % 0.4 % % (0.0-1.1) Immature Gran # 0.03 10^3/uL 10^3/uL (0.00-0.10) POC Sodium 140 mEq/L mEq/L (135-145) Sodium 138 mEq/L mEq/L (135-145) POC Potassium 4.1 mEq/L mEq/L (3.3-5.0) Potassium 4.1 mEq/L mEq/L (3.5-5.2) POC Chloride 105 mEq/L mEq/L (97-110) Chloride 104 mEq/L mEq/L (97-110) Carbon Dioxide 23 mEq/l mEq/l (22-31) POC Total CO2 25 mEq/L mEq/L (22-31) Anion Gap 11 mEq/L mEq/L (6-14) POC BUN 11 mg/dL mg/dL (7-23) BUN 11 mg/dL mg/dL (7-23) Creatinine 0.5 mg/dL L mg/dL (0.7-1.3) POC Creatinine 0.6 mg/dL L mg/dL (0.7-1.3) Estimated GFR > 60 Glucose 145 mg/dL H mg/dL (70-100) POC Glucose 159 mg/dL H mg/dL (70-100) Calcium 9.0 mg/dL mg/dL (8.5-10.4) Total Bilirubin 0.6 mg/dL mg/dL (0.1-1.4) Conjugated Bilirubin 0.0 mg/dL mg/dL (0.0-0.5) Unconjugated Bilirubin 0.6 mg/dL mg/dL (0.0-1.1) AST 44 IU/L IU/L (17-59) ALT 42 IU/L IU/L (21-72) Alkaline Phosphatase 88 IU/L IU/L (38-126) Total Protein 7.4 g/dL g/dL (6.3-8.2) Albumin 4.0 g/dL g/dL (3.5-5.0) Lipase 52 IU/L IU/L (23-300) 02/18/19 09:25 WBC REJ RBC TNP Hgb TNP POC Hgb Hct TNP POC Hct MCV TNP MCH TNP MCHC TNP RDW TNP Plt Count TNP MPV TNP Neut % (Auto) TNP Lymph % (Auto) TNP Sevier % (Auto) TNP Eos % (Auto) TNP Baso % (Auto) TNP Nucleat RBC Rel Count TNP Absolute Neuts (auto) TNP Absolute Lymphs (auto) TNP Absolute Monos (auto) TNP Absolute Eos (auto) TNP Absolute Basos (auto) TNP Absolute Nucleated RBC TNP Immature Gran % TNP Immature Gran # TNP POC Sodium Sodium POC Potassium Potassium POC Chloride Chloride Carbon Dioxide POC Total CO2 Anion Gap POC BUN BUN Creatinine POC Creatinine Estimated GFR Glucose POC Glucose Calcium Total Bilirubin Conjugated Bilirubin Unconjugated Bilirubin AST ALT Alkaline Phosphatase Total Protein Albumin Lipase Medications Given: Discontinued Medications Sodium Chloride (Ns) 500 mls @ 0 mls/hr IV EDNOW ONE; Wide Open PRN Reason: Protocol Stop: 02/18/19 09:34 Last Admin: 02/18/19 09:50 Dose: 500 mls Ondansetron HCl (Zofran) 4 mg IVP EDNOW ONE Stop: 02/18/19 09:34 Last Admin: 02/18/19 09:53 Dose: 4 mg Point of Care Test Results: Chemistry 02/18/19 09:31 POC Sodium 140 mEq/L mEq/L (135-145) POC Potassium 4.1 mEq/L mEq/L (3.3-5.0) POC Chloride 105 mEq/L mEq/L (97-110) POC Total CO2 25 mEq/L mEq/L (22-31) POC BUN 11 mg/dL mg/dL (7-23) POC Creatinine 0.6 mg/dL L mg/dL (0.7-1.3) POC Glucose 159 mg/dL H mg/dL (70-100) ISTAT H&H 02/18/19 09:31 POC Hgb 16.7 gm/dL gm/dL (13.7-17.5) POC Hct 49 % % (40-51) Departure - Departure Disposition: Home, Routine, Self-Care Clinical Impression: Abdominal pain Qualifiers: Abdominal location: generalized Qualified Code(s): R10.84 - Generalized abdominal pain Condition: Good Instructions: Acute Abdominal Pain (ED) Additional Instructions: Return with increasing abdominal pain, increasing distension, fever, repeat vomiting or any other concerns. Referrals: Ata Napoles MD [Primary Care Provider] - 1 day without fail
[2019-02-18] MEDS ORDERED: IOPAMIDOL (ISOVUE-300) 100 ML BTL ONE (09:38)
[2019-02-18 10:06] LABS: PLATELET COUNT 204 10^3/uL (150-400)
[2019-02-18] MEDS ORDERED: ONDANSETRON 4MG PREPACK#2 BTL TAKEHOME ONE (11:48)
[2019-02-18 11:59] VITALS: BP 148/76
== END 2019-02-18 11:58 | disposition home or self-care (01) ==
DX: R10.84 Generalized abdominal pain (principal); I10 Essential (primary) hypertension; E78.00 Pure hypercholesterolemia, unspecified; E86.9 Volume depletion, unspecified
CPT/HCPCS: 74177; 96361; 96374; 99285; J2405; Q9967; 82435-PO; 82565-PO; 82947-PO; 84132-PO; 84295-PO; 84520-PO; 85014-ER